=== PATIENT | male | born 1985 | race Caucasian/White ===

== ENCOUNTER 2017-01-12 14:53 | Emergency (ER) | payer SELFPAY ==
[~2017-01-12] VITALS: Ht 185.4 cm; Wt 79.9 kg
[2017-01-12 14:55] VITALS: BP 130/74
[2017-01-12] MEDS ORDERED: AZITHROMYCIN 500 MG TABLET PO ONE (15:30)
[2017-01-12] MEDS ORDERED: CEFTRIAXONE 250 MG IM ONE (15:30)
[2017-01-12] MEDS ORDERED: LIDOCAINE 1%, 20ML ONE (16:03)
[2017-01-12] MEDS ORDERED: AZITHROMYCIN 500 MG TABLET ONE (16:03)
[2017-01-12] MEDS ORDERED: CEFTRIAXONE 250 MG ONE (16:03)
== END 2017-01-12 16:15 | disposition home or self-care (01) ==
LOC: ED 15:59
DX: A56.8 Sexually transmitted chlamydial infection of other sites (principal); F12.10 Cannabis abuse, uncomplicated
CPT/HCPCS: 96372; 99283; J0696

== ENCOUNTER 2018-07-12 12:07 | Emergency (ER) | payer SELFPAY ==
[~2018-07-12] VITALS: Ht 185.4 cm; Wt 75.4 kg
[2018-07-12 12:11] VITALS: BP 105/56
== END 2018-07-12 12:26 | disposition home or self-care (01) ==
LOC: ED 12:20
DX: K08.89 Other specified disorders of teeth and supporting structures (principal)
CPT/HCPCS: 99283

== ENCOUNTER 2019-07-01 17:57 | Emergency (ER) | payer SELFPAY ==
[~2019-07-01] VITALS: Ht 185.4 cm; Wt 75.0 kg
[2019-07-01 19:43] VITALS: BP 130/72
--- NOTE | 2019-07-01 19:43 | NUR ---
C/O "POSSIBLE HEMMORROIDS, SOMETHINS IS COMING OUT OF MY BUTT" X1-2 WEEKS. DENIES HX. C/O LOWER ABD PAIN RADIATING TO BILAT FLANK PAIN. CONNECTED TO MONITORING. CALL LIGHT IN REACH.
== END 2019-07-01 20:43 | disposition home or self-care (01) ==
LOC: ED 20:37
DX: K62.3 Rectal prolapse (principal); K64.8 Other hemorrhoids; F17.200 Nicotine dependence, unspecified, uncomplicated
CPT/HCPCS: 99283

== ENCOUNTER 2021-04-05 22:12 | Inpatient (IN) | payer MEDICAID ==
[~2021-04-05] VITALS: Ht 185.4 cm; Wt 83.2 kg
--- NOTE | 2021-04-05 22:32 | NUR ---
pt states he was at work and was using his sludge hammer which he almost dropped so he attempted to save it and heard his right should pop since last . pt reports using meth occasionally as well as currently on steroids. attached to card/sp02/bp monitors. eleveated hr. appears in pain. bed in low, rails engaged. call light on lap. [facility]
--- NOTE | 2021-04-05 22:34 | NUR ---
pt right shoulder appears reddened, swollen, and looks like it could be infected.
[2021-04-05] MEDS ORDERED: MORPHINE SULFATE 4 MG/ML, 1ML ONE (22:52)
[2021-04-05] MEDS ORDERED: ONDANSETRON 2MG/ML, 2ML ONE (22:52)
[2021-04-05] MEDS: MORPHINE SULFATE 4 MG/ML, 1ML IVPush PRN (22:57)
[2021-04-05] MEDS ORDERED: VANCOMYCIN PER PHARMACY MC ONE (23:00)
[2021-04-05] MEDS ORDERED: PHARMACOKINETIC CONSULTATION MC ONE (23:00)
[2021-04-05] MEDS ORDERED: PIPERACILLIN/TAZO 3.375 GM in DEXTROSE 5% 50 ML IVPB ONE (23:00)
[2021-04-05] MEDS ORDERED: SODIUM CHLORIDE 0.9% 1,000ML IVBOLUS ONE (23:00)
[2021-04-05] MEDS ORDERED: SODIUM CHLORIDE FLUSH 10ML SYR IVF ONE (23:00)
[2021-04-05] MEDS ORDERED: ONDANSETRON 2MG/ML, 2ML IVPush ONE (23:00)
[2021-04-05 23:15] LABS: ALANINE AMINOTRANSFERASE 75 U/L (12-78); ALBUMIN 2.4 g/dL (3.4-5.0); ANION GAP 8 mmol/L (5-15); CALCIUM 8.6 mg/dL (8.5-10.1); CHLORIDE 97 mmol/L (98-107)
[2021-04-05 23:18] LABS: ALKALINE PHOSPHATASE 67 U/L (45-117); BILIRUBIN,TOTAL 0.3 mg/dL (0.2-1.0); CREATININE 1.08 mg/dL (0.7-1.3); TOTAL PROTEIN 7.1 g/dL (6.4-8.2)
[2021-04-05 23:26] LABS: MEAN CORPUSCULAR HEMOGLOBIN 31.2 pg (27.5-34.5); MEAN CORPUSCULAR HGB CONC 33.6 g/dL (33.2-36.2); MEAN PLATELET VOLUME 8.1 fL (7.4-10.4); PLATELET COUNT 406 x10^3/uL (130-400); RED BLOOD COUNT 4.17 x10^6/uL (4.38-5.82); RED CELL DISTRIBUTION WIDTH 14.5 % (9.4-14.8)
[2021-04-05] MEDS ORDERED: VANCOMYCIN 2,100 MG in SODIUM CHLORIDE 0.9% 500 ML IV ONE (23:30)
--- NOTE | 2021-04-05 23:37 | NUR ---
PT OFF UNIT IN IMAGING. PT GIVEN HEATED BLANKETS RIGHT BEFORE
--- NOTE | 2021-04-05 23:52 | NUR ---
pt back from ct. abilio and ns running. pt in nad. vss. breathing even and unlabored. a&0x4
[2021-04-05] MEDS ORDERED: OMNIPAQUE 350 MG/ML, 100ML BOTTLE ONE (23:58)
[2021-04-06] LABS: BAND#(MANUAL) 2.62 x10^3/uL; BANDS%(MANUAL) 12 % (0-7); EOS#(MANUAL) 0.65 x10^3/uL (0.0-0.4); EOS% (MANUAL) 3 % (1-7); LYMPH#(MANUAL) 0.65 x10^3/uL (1-3.4); LYMPHS% (MANUAL) 3 % (22-44); MONOS#(MANUAL) 0.87 x10^3/uL (0.3-2.7); MONOS% (MANUAL) 4 % (2-9); SEGS% (MANUAL) 78 % (42-75)
[2021-04-06 00:01] LABS: <PLATELET ESTIMATE> INCREASED; <PLT MORPHOLOGY> NORMAL PLT MORPH; <RBC MORPHOLOGY> NORMAL
--- NOTE | 2021-04-06 00:32 | NUR ---
Patient is sleeping comfortably in bed. eyes closed. Bed in lowest, rails engaged, call light on lap. Vital Signs within normal limits. WCTM. nadn.
--- NOTE | 2021-04-06 01:00 | NUR ---
PT GIVEN URINAL TO URINATE 20 MINUTES AGO.
[2021-04-06] MEDS ORDERED: ONDANSETRON 2MG/ML, 2ML IVPush PRN ×4 (01:30→16:30)
[2021-04-06] MEDS ORDERED: SODIUM CHLORIDE 0.9% 1,000 ML IV ONE (01:30)
[2021-04-06] MEDS ORDERED: SODIUM CHLORIDE 0.9% 1,000ML IVBOLUS ONE (01:30)
[2021-04-06] MEDS ORDERED: MORPHINE SULFATE 4 MG/ML, 1ML IVPush PRN (01:30)
--- NOTE | 2021-04-06 02:33 | NUR ---
PT RESTING IN BED. PT DROPPED URINAL ON GROUND AND SPILT URINE. A&OX4, BREATHING EVEN AND UNLABORED. NADN. REQUESTING MORE BLANKETS. WCTM
--- NOTE | 2021-04-06 03:07 | NUR ---
LATE ENTRY DUE TO PT CARE. PT TRANSFERRED TO HOSPITAL BED. PT GIVEN MORE BLANKETS AND MORE PILLOWS. PT STATES HE IS MORE COMFORTABLE. NO QUESTIUONS OR NEEDS AT THIS TIME. АННА. CALVIN
--- NOTE | 2021-04-06 04:36 | NUR ---
Patient is resting comfortably in bed. Bed in lowest, rails engaged, call light on lap. Vital Signs within normal limits. WCTM.
[2021-04-06] MEDS ORDERED: MORPHINE SULFATE 4 MG/ML, 1ML ONE (04:38)
[2021-04-06] MEDS: MORPHINE SULFATE 4 MG/ML, 1ML IVPush PRN (04:39)
[2021-04-06] MEDS ORDERED: ACETAMINOPHEN 325 MG TABLET PO PRN ×3 (05:30→16:30)
[2021-04-06] MEDS ORDERED: LABETALOL 5MG/ML, 20ML IVPush PRN (05:30)
[2021-04-06] MEDS: SODIUM CHLORIDE 0.9% 1,000 ML IV SCH ×2 (05:30→23:30)
[2021-04-06] MEDS ORDERED: HYDROmorphone 2 MG/ML, 1ML IVPush PRN (05:30)
[2021-04-06] MEDS ORDERED: VANCOMYCIN PER PHARMACY MC PRN (05:30)
[2021-04-06 05:59] LABS: MEAN CORPUSCULAR HEMOGLOBIN 31.3 pg (27.5-34.5); PLATELET COUNT 363 x10^3/uL (130-400); RED BLOOD COUNT 4.16 x10^6/uL (4.38-5.82); RED CELL DISTRIBUTION WIDTH 14.9 % (9.4-14.8)
[2021-04-06] MEDS ORDERED: NICOTINE 14MG/24 HR PATCH.TD24 ONE (06:01)
[2021-04-06 06:06] LABS: ANION GAP 7 mmol/L (5-15); CALCIUM 7.7 mg/dL (8.5-10.1); CHLORIDE 103 mmol/L (98-107)
[2021-04-06] MEDS: NICOTINE 14MG/24 HR PATCH.TD24 TD SCH (06:13)
[2021-04-06] MEDS: PIPERACILLIN/TAZO 3.375 GM in DEXTROSE 5% 50 ML IV SCH ×3 (06:14→20:12)
[2021-04-06 06:27] LABS: ANISOCYTOSIS 1+; BAND#(MANUAL) 3.73 x10^3/uL; BANDS%(MANUAL) 18 % (0-7); BASOS#(MANUAL) 0.21 x10^3/uL (0-0.1); BASOS% (MANUAL) 1 % (0-1); ECHINOCYTES 1+; EOS#(MANUAL) 0.41 x10^3/uL (0.0-0.4); EOS% (MANUAL) 2 % (1-7); LYMPH#(MANUAL) 0.62 x10^3/uL (1-3.4); LYMPHS% (MANUAL) 3 % (22-44); MONOS#(MANUAL) 0.83 x10^3/uL (0.3-2.7); MONOS% (MANUAL) 4 % (2-9); SEGS% (MANUAL) 72 % (42-75)
[2021-04-06 06:28] LABS: <PLATELET ESTIMATE> ADEQUATE; <PLT MORPHOLOGY> NORMAL PLT MORPH; CREATINE KINASE, TOTAL 42 U/L (39-308); CREATININE 0.97 mg/dL (0.7-1.3); PMNS WITH VACUOLES 1+; SMUDGE CELLS 1+
--- NOTE | 2021-04-06 06:51 | NUR ---
GAVE REPORT TO MARIELA KAYE. TRANSFER OF CARE.
[2021-04-06 09:54] VITALS: BP 111/67
[2021-04-06] MEDS ORDERED: PHARMACOKINETIC MONITORING MC PRN (11:00)
[2021-04-06] MEDS ORDERED: VANCOMYCIN 1,700 MG in SODIUM CHLORIDE 0.9% 250 ML IV SCH (11:00)
[2021-04-06] MEDS ORDERED: PHARMACOKINETIC CONSULTATION MC ONE (11:00)
[2021-04-06] MEDS: VANCOMYCIN 1,700 MG in SODIUM CHLORIDE 0.9% 250 ML IV SCH (11:21)
[2021-04-06] MEDS ORDERED: FENTANYL PF 100 MCG/2ML ONE ×2 (12:25)
[2021-04-06] MEDS ORDERED: MIDAZOLAM 1 MG/ML, 2ML ONE (12:25)
[2021-04-06] MEDS ORDERED: EPHEDRINE 50 MG/ML, 1ML IVPush PRN (12:30)
[2021-04-06] MEDS ORDERED: FENTANYL PF 100 MCG/2ML IV PRN ×2 (12:30→16:30)
[2021-04-06] MEDS ORDERED: METOPROLOL 1 MG/ML, 5ML IV PRN (12:30)
[2021-04-06] MEDS ORDERED: PROMETHAZINE 25 MG/ML, 1ML IVPush PRN ×2 (12:30→16:30)
[2021-04-06] MEDS ORDERED: MEPERIDINE/PF 25MG/0.5ML IVPush PRN ×2 (12:30→16:30)
[2021-04-06] MEDS ORDERED: LABETALOL 5MG/ML, 20ML IV PRN ×2 (12:30→16:30)
[2021-04-06] MEDS ORDERED: HYDROmorphone 1 MG/ML, 1ML INJ IVPush PRN ×2 (12:30→16:30)
[2021-04-06] MEDS ORDERED: LACTATED RINGERS 1,000 ML IVBOLUS ONE (12:30)
[2021-04-06] MEDS ORDERED: OXYcodone 5 MG/5 ML ORAL.SOL UDC PO PRN ×2 (12:30→16:30)
[2021-04-06] MEDS ORDERED: DEXAMETHASONE 4 MG/ML, 1ML ONE (12:31)
[2021-04-06] MEDS ORDERED: ONDANSETRON 2MG/ML, 2ML ONE (12:31)
[2021-04-06] MEDS ORDERED: PROPOFOL 10 MG/ML, 20ML ONE (12:31)
[2021-04-06] MEDS ORDERED: CHLORHEXIDINE 15 ML UDC ONE (12:55)
[2021-04-06] MEDS ORDERED: CHLORHEXIDINE 15 ML UDC PO ONE (13:00)
[2021-04-06] MEDS ORDERED: LORazepam 2 MG/ML, 1ML ONE (14:29)
[2021-04-06] MEDS ORDERED: LORazepam 2 MG/ML, 1ML IVPush ONE (14:30)
[2021-04-06] MEDS ORDERED: MORPHINE SULFATE 4 MG/ML, 1ML IVPush ONE (14:30)
[2021-04-06] MEDS ORDERED: PHENYLEPHRINE 10 MG/ML ONE (15:22)
[2021-04-06] MEDS ORDERED: SUCCINYLCHOLINE 20 MG/ML, 10ML ONE (15:22)
[2021-04-06] MEDS ORDERED: HYDROmorphone 1 MG/ML, 1ML INJ ONE (15:46)
[2021-04-06] MEDS ORDERED: PROMETHAZINE 25 MG SUPP PR PRN (16:30)
[2021-04-06] MEDS ORDERED: ALBUTEROL/IPRATROPIUM 2.5MG/0.5MG, 3 ML NPPB PRN (16:30)
[2021-04-06] MEDS ORDERED: METHOCARBAMOL 1,000 MG in DEXTROSE 5% 100 ML IV PRN (16:30)
[2021-04-06] MEDS ORDERED: hydrALAzine 20 MG/ML, 1ML IV PRN (16:30)
[2021-04-06] MEDS ORDERED: LORazepam 2 MG/ML, 1ML IVPush PRN (16:30)
[2021-04-06 19:03] VITALS: BP 121/74
[2021-04-07] MEDS: VANCOMYCIN 1,700 MG in SODIUM CHLORIDE 0.9% 250 ML IV SCH ×3 (00:13→23:43)
[2021-04-07 02:17] VITALS: BP 110/69
[2021-04-07] MEDS: PIPERACILLIN/TAZO 3.375 GM in DEXTROSE 5% 50 ML IV SCH ×4 (03:02→20:13)
[2021-04-07] MEDS: NICOTINE 14MG/24 HR PATCH.TD24 TD SCH (06:01)
[2021-04-07] MEDS: SODIUM CHLORIDE 0.9% 1,000 ML IV SCH (07:30)
[2021-04-07 08:06] LABS: MEAN CORPUSCULAR HEMOGLOBIN 30.8 pg (27.5-34.5); MEAN CORPUSCULAR HGB CONC 33.3 g/dL (33.2-36.2); MEAN PLATELET VOLUME 8.1 fL (7.4-10.4); PLATELET COUNT 446 x10^3/uL (130-400); RED BLOOD COUNT 3.98 x10^6/uL (4.38-5.82)
[2021-04-07 08:13] LABS: ALANINE AMINOTRANSFERASE 92 U/L (12-78); ALBUMIN 1.7 g/dL (3.4-5.0); CALCIUM 7.8 mg/dL (8.5-10.1); CREATININE 0.91 mg/dL (0.7-1.3)
[2021-04-07 08:16] LABS: ALKALINE PHOSPHATASE 79 U/L (45-117); BILIRUBIN,TOTAL 0.2 mg/dL (0.2-1.0); TOTAL PROTEIN 6.1 g/dL (6.4-8.2)
[2021-04-07 08:28] LABS: ANION GAP 9 mmol/L (5-15); CHLORIDE 105 mmol/L (98-107)
[2021-04-07 08:36] VITALS: BP 101/64
[2021-04-07 08:55] LABS: BAND#(MANUAL) 7.89 x10^3/uL; BANDS%(MANUAL) 30 % (0-7); LYMPH#(MANUAL) 0.53 x10^3/uL (1-3.4); LYMPHS% (MANUAL) 2 % (22-44); MONOS#(MANUAL) 1.84 x10^3/uL (0.3-2.7); MONOS% (MANUAL) 7 % (2-9); REACTIVE LYMPHS # (MANUAL) 0.26 x10^3/uL (0-0); REACTIVE LYMPHS % (MANUAL) 1 % (0-0); SEG#(MANUAL) 15.78 x10^3/uL (1.8-6.8); SEGS% (MANUAL) 60 % (42-75)
[2021-04-07 08:56] LABS: <PLATELET ESTIMATE> INCREASED; <PLT MORPHOLOGY> NORMAL PLT MORPH; ANISOCYTOSIS 1+; ECHINOCYTES 1+
[2021-04-07] MEDS ORDERED: KETOROLAC 30 MG/1 ML IVPush PRN (09:00)
[2021-04-07] MEDS ORDERED: OXYcodone IR 5MG TABLET PO PRN (09:00)
[2021-04-07 13:19] VITALS: BP 130/75
[2021-04-07] MEDS ORDERED: NICOTINE 14MG/24 HR PATCH.TD24 TD ONE (14:30)
[2021-04-07] MEDS: ENOXAPARIN 40 MG/0.4 ML SQ SCH (16:42)
[2021-04-07 18:42] VITALS: BP 122/70
[2021-04-08 00:59] VITALS: BP 135/72
[2021-04-08] MEDS: PIPERACILLIN/TAZO 3.375 GM in DEXTROSE 5% 50 ML IV SCH ×4 (02:18→20:46)
[2021-04-08] MEDS: NICOTINE 14MG/24 HR PATCH.TD24 TD SCH (05:04)
[2021-04-08 07:24] VITALS: BP 135/77
[2021-04-08] MEDS: VANCOMYCIN 1,700 MG in SODIUM CHLORIDE 0.9% 250 ML IV SCH ×2 (09:31→16:43)
[2021-04-08] MEDS ORDERED: LORazepam 2 MG/ML, 1ML IVPush PRN (14:00)
[2021-04-08 14:29] VITALS: BP 136/82
[2021-04-08] MEDS: ENOXAPARIN 40 MG/0.4 ML SQ SCH (16:42)
[2021-04-08] MEDS ORDERED: CEFAZOLIN 2,000 MG in SODIUM CHLORIDE 0.9% 50 ML IV SCH (17:00)
[2021-04-08 19:37] VITALS: BP 120/73
== END 2021-04-08 22:01 | disposition left against medical advice (07) | DRG 854 ==
LOC: ED 04-06 01:24 → EDIP 04-06 01:42 → 4EST 04-06 09:40
PROVIDERS: ADMIT Family Medicine; ATTEND Internal Medicine
PROC: 0J9D0ZZ Drainage of Right Upper Arm Subcutaneous Tissue and Fascia, Open Approach (ICD-10-PCS; principal; 2021-04-06 13:45)
DX: A41.01 Sepsis due to Methicillin susceptible Staphylococcus aureus (principal); L03.113 Cellulitis of right upper limb; E87.1 Hypo-osmolality and hyponatremia; L02.413 Cutaneous abscess of right upper limb; R65.20 Severe sepsis without septic shock; D64.9 Anemia, unspecified; F15.10 Other stimulant abuse, uncomplicated; F17.210 Nicotine dependence, cigarettes, uncomplicated; F41.9 Anxiety disorder, unspecified; Z82.5 Family history of asthma and other chronic lower respiratory diseases; Z91.19 Patient's noncompliance with other medical treatment and regimen; Z20.822 Contact with and (suspected) exposure to COVID-19; Z53.29 Procedure and treatment not carried out because of patient's decision for other reasons
CPT/HCPCS: 36415; 80048; 80053; 80202; 82550; 83605; 84145; 85025; 87040; 87070; 87075; 87077; 87186; 87205; 87635; 96361; 96374; G0378; J0690; J1100; J1170; J1650; J2250; J2405; J2543; J2704; J3010; J3370; Q9967; J0330; J2060; J2270; J2370; J7030; J7040; J7050; J7120